=== PATIENT | female | born 1970 | race Hispanic/Latino ===

== ENCOUNTER 2017-10-25 13:03 | Emergency (ER) | payer SELFPAY ==
[2017-10-25 13:09] VITALS: BMI 35.6
[2017-10-25 13:13] VITALS: RESP 18; TEMP 98.2
[2017-10-25] MEDS ORDERED: Albuterol-Ipratrop 3 mg / 0.5 (3 ml) UD IH STA (13:25)
--- NOTE | 2017-10-25 13:27 | ED PDOC ---
Arrival/HPI - General Chief Complaint: Shortness Of Breath Time Seen by Provider: 10/25/17 13:08 Historian: Patient - History of Present Illness Narrative History of Present Illness (Text): 10/25/17 13:25 47 year old female, whose PMH includes COPD and peripheral edema, who presents to the emergency department complaining of shortness of breath associated with cough and sore throat that has gradually become worse. Patient denies other complaints. PMD: Dr. Steinberg Time/Duration: < week Symptom Course: Unchanged Context: Home Past Medical History - Provider Review Nursing Documentation Reviewed: Yes - Past History Past History: Non-Contributing (hypothyroidm, borderline dm, htn? (is on "water pill' for LE edema)) - Infectious Disease Hx of Infectious Diseases: None - Tetanus Immunization Tetanus Immunization: Unknown - Cardiac Hx Cardiac Disorders: No Hx Peripheral Edema: Yes (ble +1) - Pulmonary Hx Bronchitis: Yes Hx Chronic Obstructive Pulmonary Disease (COPD): Yes Hx Pneumonia: Yes - Neurological Hx Neurological Disorder: No - HEENT Hx HEENT Disorder: No - Renal Hx Renal Disorder: No - Endocrine/Metabolic Hx Hypothyroidism: Yes Other/Comment: hashimotos - Hematological/Oncological Hx Anemia: Yes - Integumentary Hx Dermatological Disorder: No - Musculoskeletal/Rheumatological Hx Falls: No - Genitourinary/Gynecological Hx Genitourinary Disorders: Yes (UTI) - Psychiatric Hx Substance Use: No - Past Surgical History Past Surgical History: No Previous - Anesthesia Hx Anesthesia: No - Suicidal Assessment Feels Threatened In Home Enviroment: No Family/Social History - Physician Review Nursing Documentation Reviewed: Yes Family/Social History: Unknown Family HX Smoking Status: Heavy Smoker > 10 Cigarettes Daily Hx Alcohol Use: No Hx Substance Use: No Hx Substance Use Treatment: No Allergies/Home Meds Allergies/Adverse Reactions: Allergies Penicillins Allergy (Verified 10/25/17 13:09) SHORTNESS OF BREATH Home Medications: Home Meds Medication Instructions Recorded Confirmed Levothyroxine [Synthroid] 0 mg PO DAILY 01/29/15 10/25/17 Furosemide [Lasix] 0 mg PO DAILY 10/25/17 10/25/17 Review of Systems - Physician Review All systems were reviewed & negative as marked: Yes - Review of Systems ENT: Sore Throat. absent: Sinus Congestion Respiratory: SOB, Cough Cardiovascular: absent: Chest Pain Gastrointestinal: absent: Abdominal Pain Physical Exam Vital Signs Reviewed: Yes Vital Signs Temp Pulse Resp BP Pulse Ox 10/25/17 15:03 75 18 116/58 L 98 10/25/17 13:24 18 10/25/17 13:12 98.2 F 78 18 114/47 L 97 Temperature: Afebrile Blood Pressure: Hypotensive Pulse: Regular Respiratory Rate: Normal Appearance: Positive for: Well-Appearing, Non-Toxic, Comfortable Pain Distress: None Mental Status: Positive for: Alert and Oriented X 3 - Systems Exam Head: Present: Atraumatic, Normocephalic Pupils: Present: PERRL Extroacular Muscles: Present: EOMI Conjunctiva: Present: Normal Mouth: Present: Moist Mucous Membranes Pharnyx: Present: Normal. No: ERYTHEMA, EXUDATE, TONSILS ENLARGED Respiratory/Chest: Present: Clear to Auscultation, Decreased Breath Sounds ( mildly diminished at the bases ). No: Good Air Exchange, Respiratory Distress, Accessory Muscle Use, Wheezes, Rales, Retracting, Rhonchi Cardiovascular: Present: Regular Rate and Rhythm, Normal S1, S2. No: Murmurs Abdomen: Present: Normal Bowel Sounds. No: Tenderness, Distention, Peritoneal Signs, Rebound, Guarding Neurological: Present: GCS=15, CN II-XII Intact, Speech Normal Skin: Present: Warm, Dry, Normal Color. No: Rashes Psychiatric: Present: Alert, Oriented x 3, Normal Insight, Normal Concentration Medical Decision Making ED Course and Treatment: 10/25/17 13:28 Impression: 47 year old female with diminished breath sounds at the bases complainig of shortness of breath. Plan: -- EKG -- Chest X-ray -- Labs -- Urinalysis -- Reassess and disposition Progress Notes: EKG: Ordered, reviewed, and independently interpreted the EKG. Rate : 68 BPM Rhythm : NSR Interpretation : No ST-segment elevations or depressions, no T-wave inversions, normal intervals. Comparison : No previous EKG for comparison. 10/25/17 14:10 Chest X-ray reviewed by radiologist, shows: LUNGS: No active pulmonary disease. No suspicious nodules masses or infiltrates PLEURA: No significant pleural effusion identified, no pneumothorax apparent. CARDIOVASCULAR: Cardiomegaly, pulmonary vascular congestion. OSSEOUS STRUCTURES: No significant abnormalities. VISUALIZED UPPER ABDOMEN: Normal. OTHER FINDINGS: None. IMPRESSION: Cardiomegaly/mild CHF. 10/28/17 09:[address] peralta with labs and imaging. agrees with outpt managment. 10/28/17 09:26 lungs clear on reassemsent speaking full sentences in nad. tamiflu given empiric - Lab Interpretations Lab Results: 10/25/17 13:30 10/25/17 13:30 Lab Results 10/25/17 13:30: Sodium 135, Potassium 3.6, Chloride 88 L, Carbon Dioxide 38 H, Anion Gap 13, BUN 9, Creatinine 0.8, Est GFR ( Amer) > 60, Est GFR (Non- Af Amer) > 60, Random Glucose 103, Calcium 9.1, Magnesium 2.0, Total Bilirubin 0.3, AST 38 H, ALT 37, Alkaline Phosphatase 102, Lactate Dehydrogenase 792 H, Total Creatine Kinase 377 H, CK-MB (CK-2) 4.1 H, CK-MB (CK-2) % Cancelled, Troponin I < 0.01, NT-Pro-B Natriuret Pep 21.0, Total Protein 7.6, Albumin 4.1, Globulin 3.5, Albumin/Globulin Ratio 1.2 10/25/17 13:30: PT 11.0, INR 0.96, APTT 36.6 H 10/25/17 13:30: WBC 11.4 H, RBC 5.20, Hgb 14.0, Hct 43.5, MCV 83.7, MCH 26.9, MCHC 32.2, RDW 17.9 H, Plt Count 323, MPV 9.8, Gran % 80.3 H, Lymph % (Auto) 8.9 L, [place] % (Auto) 4.1, Eos % (Auto) 6.0 H, Baso % (Auto) 0.7, Gran # 9.16 H, Lymph # (Auto) 1.0 L, [place] # (Auto) 0.5, Eos # (Auto) 0.7, Baso # (Auto) 0.08 I have reviewed the lab results: Yes - RAD Interpretation Radiology Orders: 10/25/17 13:24 CHEST PORTABLE [RAD] Stat Professional Athletes Coach: Radiologist - EKG Interpretation Interpreted by ED Physician: Yes Type: 12 lead EKG - Medication Orders Current Medication Orders: Discontinued Medications Albuterol/Ipratropium (Duoneb 3 Mg/0.5 Mg (3 Ml) Ud) 3 ml IH STAT STA Stop: 10/25/17 13:26 Last Admin: 10/25/17 13:48 Dose: 3 ml - Scribe Statement The provider has reviewed the documentation as recorded by the Donyaibe Charlene Mack Provider Scribe Attestation: All medical record entries made by the Scribe were at my direction and personally dictated by me. I have reviewed the chart and agree that the record accurately reflects my personal performance of the history, physical exam, medical decision making, and the department course for this patient. I have also personally directed, reviewed, and agree with the discharge instructions and disposition. Disposition/Present on Arrival - Present on Arrival Any Indicators Present on Arrival: No History of DVT/PE: No History of Uncontrolled Diabetes: No Urinary Catheter: No History of Decub. Ulcer: No History Surgical Site Infection Following: None - Disposition Have Diagnosis and Disposition been Completed?: Yes Diagnosis: Acute bronchitis Disposition: HOME/ ROUTINE Disposition Time: 03:00 Condition: STABLE Discharge Instructions (ExitCare): Acute Bronchitis Additional Instructions: please follow up with your doctor. return to er with worsening symptoms or concerns. your pmd is expecting to see you tomorrow Prescriptions: Albuterol 0.083% [Albuterol 0.083% Inhal Manjula (2.5 mg/3 ml) UD] 2.5 mg IH Q4 PRN #20 neb PRN Reason: Wheezing Oseltamivir Phosphate [Tamiflu] 75 mg PO BID #10 capsule Referrals: Reed Steinberg MD [Primary Care Provider] - Follow up with primary Forms: [employer] (Romanian)
[2017-10-25 13:53] LABS: BASO # 0.08 K/mm3 (0.0-2.0); BASO % 0.7 % (0.0-3.0); EOS # 0.7 (0.0-0.7); GRAN # 9.16 (1.4-6.5); GRAN % 80.3 % (50.0-68.0); LYMPH % 8.9 % (22.0-35.0); MEAN CELL VOLUME 83.7 fl (80.0-105.0); MEAN CORPUSCULAR HEMOGLOBIN 26.9 pg (25.0-35.0); MEAN CORPUSCULAR HGB CONC 32.2 g/dl (31.0-37.0); MEAN PLATELET VOLUME 9.8 fl (7.0-11.0); MONO # 0.5 (0.1-0.6); MONO % 4.1 % (1.0-6.0); RBC 5.2 10^6/uL (3.5-6.1); RED CELL DISTRIBUTION WIDTH 17.9 % (11.5-14.5); WHITE BLOOD COUNT 11.4 10^3/ul (4.5-11.0)
--- NOTE | 2017-10-25 14:00 | RAD ---
HISTORY: Shortness of breath. COMPARISON: 05/21/2016. FINDINGS: LUNGS: No active pulmonary disease. No suspicious nodules masses or infiltrates PLEURA: No significant pleural effusion identified, no pneumothorax apparent. CARDIOVASCULAR: Cardiomegaly, pulmonary vascular congestion. OSSEOUS STRUCTURES: No significant abnormalities. VISUALIZED UPPER ABDOMEN: Normal. OTHER FINDINGS: None. IMPRESSION: Cardiomegaly/mild CHF.
[2017-10-25 14:03] LABS: INR 0.96 (0.93-1.08); PARTIAL THROMBOPLASTIN TIME 36.6 Seconds (25.1-36.5)
[2017-10-25 14:20] LABS: TROPONIN I < 0.01 ng/mL
[2017-10-25 14:22] LABS: ALB/GLOB RATIO 1.2 (1.1-1.8); ALBUMIN 4.1 g/dL (3.0-4.8); ALT/SGPT 37 U/L (7-56); AST/SGOT 38 U/L (14-36); BLOOD UREA NITROGEN 9 mg/dL (7-21); CALCIUM 9.1 mg/dL (8.4-10.5); GFR AFRICAN-AMERICAN > 60; GFR NON-AFRICAN AMERICAN > 60
[2017-10-25 14:27] LABS: CK-MB 4.1 ng/mL (0.0-3.6)
[2017-10-25 15:03] VITALS: BP 116/58; PULSE 75; O2SAT 98
--- NOTE | 2017-10-26 09:32 | CARD ---
APPROVED REPORT EKG Measurement Heart [id number] <Conclusion> Normal sinus rhythm Low voltage QRS NSSTW changes T waves now upright V 2,3 and 6
== END 2017-10-25 15:16 | disposition home or self-care (01) ==
LOC: ED 13:03
DX: J20.9 Acute bronchitis, unspecified (principal); F17.210 Nicotine dependence, cigarettes, uncomplicated

== ENCOUNTER 2017-10-29 08:55 | Emergency (ER) | payer BC ==
[2017-10-29 08:56] VITALS: BMI 35.6
[2017-10-29 10:00] LABS: BASO # 0.07 K/mm3 (0.0-2.0); BASO % 0.7 % (0.0-3.0); EOS # 0.7 (0.0-0.7); GRAN # 7.88 (1.4-6.5); GRAN % 76.8 % (50.0-68.0); HEMOGLOBIN 14.4 g/dL (12.0-16.0); LYMPH # 1.2 (1.2-3.4); LYMPH % 11.4 % (22.0-35.0); MEAN CELL VOLUME 84.8 fl (80.0-105.0); MEAN CORPUSCULAR HEMOGLOBIN 27.3 pg (25.0-35.0); MEAN CORPUSCULAR HGB CONC 32.2 g/dl (31.0-37.0); MEAN PLATELET VOLUME 9.9 fl (7.0-11.0); MONO # 0.4 (0.1-0.6); MONO % 4.1 % (1.0-6.0); RBC 5.27 10^6/uL (3.5-6.1); RED CELL DISTRIBUTION WIDTH 18.4 % (11.5-14.5); WHITE BLOOD COUNT 10.3 10^3/ul (4.5-11.0)
--- NOTE | 2017-10-29 10:03 | ED PDOC ---
Arrival/HPI - General Chief Complaint: Psychiatric Evaluation Time Seen by Provider: 10/29/17 09:24 Historian: Patient EM Caveat: Altered Mental Status - History of Present Illness Narrative History of Present Illness (Text): 10/29/17 09:51 Pt is a 47 yr old morbidly obese female w PMH of Hypertension, COPD, Sleep apnea and more recently, scabies, presents to the emergency department for altered mental status since Saturday. Reports that she has had dream-like states after watching certain engaging television shows before sleeping, says she awakes and begins to hear and see characters from the show and accuses her spouse and family of doing things such as selling marijuana, that she saw on TV. Reports this has continued over the weekend and Saturday with the finally bringing her to the ED after she was talking gibberish today. Also complaining of neck pain primarily on neck extension. Pt reports a healing rash from scabies which is now improving. Says she is supposed to use a C-PAP unit at night but feels panicked using it; also smokes more than one pack/day. Denies suicidal or homicidal ideation, chest pain shortness of breath abdominal pain, REDDY, fever, LOC, trauma, previous psychiatric dx, new medications, or any other complaints. PMD is Dr. Steinberg. 10/29/17 10:06 Time/Duration: 4-6 hours Symptom Onset: Gradual Symptom Course: Intermittent Quality: Unable to Describe Severity Level: 3 Activities at Onset: Rest, Sleeping Context: Home Past Medical History - Provider Review Nursing Documentation Reviewed: Yes - Travel History Have you recently traveled outside [place] w/in the past 3 mons?: No - Past History Past History: Non-Contributing (hypothyroidm, borderline dm, htn? (is on "water pill' for LE edema)) - Infectious Disease Hx of Infectious Diseases: None - Tetanus Immunization Tetanus Immunization: Unknown - Cardiac Hx Cardiac Disorders: Yes Hx Peripheral Edema: Yes (ble +1) - Pulmonary Hx Bronchitis: Yes Hx Chronic Obstructive Pulmonary Disease (COPD): Yes Hx Pneumonia: Yes - Neurological Hx Neurological Disorder: No - HEENT Hx HEENT Disorder: No - Renal Hx Renal Disorder: No - Endocrine/Metabolic Hx Endocrine Disorders: Yes Hx Hypothyroidism: Yes Other/Comment: hashimotos, goiter - Hematological/Oncological Hx Anemia: Yes - Integumentary Hx Dermatological Disorder: Yes Other/Comment: treated for scabies 10/07/17 - Musculoskeletal/Rheumatological Hx Musculoskeletal Disorders: Yes Hx Falls: No Other/Comment: "pinched nerve" - Genitourinary/Gynecological Hx Genitourinary Disorders: Yes (UTI) - Psychiatric Hx Substance Use: No - Past Surgical History Past Surgical History: No Previous - Anesthesia Hx Anesthesia: No - Suicidal Assessment Feels Threatened In Home Enviroment: No Family/Social History - Physician Review Nursing Documentation Reviewed: Yes Family/Social History: Unknown Family HX Smoking Status: Heavy Smoker > 10 Cigarettes Daily Hx Alcohol Use: No Hx Substance Use: No Hx Substance Use Treatment: No Allergies/Home Meds Allergies/Adverse Reactions: Allergies Penicillins Allergy (Verified 10/29/17 09:14) SHORTNESS OF BREATH Home Medications: Home Meds Medication Instructions Recorded Confirmed Levothyroxine [Synthroid] 25 mcg PO DAILY 01/29/15 10/29/17 Furosemide [Lasix] 20 mg PO DAILY 10/25/17 10/29/17 Levofloxacin [Levaquin] 500 mg PO DAILY 10/29/17 10/29/17 Prednisone 50 mg PO DAILY 10/29/17 10/29/17 Review of Systems - Review of Systems Systems not reviewed;Unavailable: Altered Mental Status Constitutional: Normal Eyes: Normal ENT: Normal Respiratory: Normal Cardiovascular: Normal Gastrointestinal: Normal Genitourinary Female: Normal Musculoskeletal: Back Pain, Neck Pain Skin: Rash Neurological: Normal Endocrine: Normal Hemo/Lymphatic: Normal Psychiatric: Anxiety, Other (hallucinations). absent: Depression, Suicidal Ideation Physical Exam Vital Signs Reviewed: Yes Vital Signs Temp Pulse Resp BP Pulse Ox 10/29/17 13:00 98.2 F 80 20 136/75 96 10/29/17 09:44 98.1 F 77 18 123/84 98 Temperature: Afebrile Blood Pressure: Normal Pulse: Regular Respiratory Rate: Normal Appearance: Positive for: Well-Appearing, Non-Toxic, Comfortable Pain Distress: Mild Mental Status: Positive for: Alert and Oriented X 3 - Systems Exam Head: Present: Atraumatic, Normocephalic Pupils: Present: PERRL Extroacular Muscles: Present: EOMI Conjunctiva: Present: Normal Mouth: Present: Moist Mucous Membranes Neck: Present: Normal Range of Motion Respiratory/Chest: Present: Clear to Auscultation, Good Air Exchange. No: Respiratory Distress, Accessory Muscle Use Cardiovascular: Present: Regular Rate and Rhythm, Normal S1, S2. No: Murmurs Abdomen: No: Tenderness, Distention, Peritoneal Signs Back: Present: Normal Inspection, Midline Tenderness, Paraspinal Tenderness ( nape of neck, C-T-LS, SI jt bilateral) Upper Extremity: Present: Normal Inspection, Normal ROM, NORMAL PULSES, Tenderness (nape of neck, C-T-LS, SI jt bilateral). No: Cyanosis, Edema Lower Extremity: Present: Normal Inspection, NORMAL PULSES, Normal ROM. No: Edema, CALF TENDERNESS, Tenderness, Swelling, Erythema Neurological: Present: GCS=15, CN II-XII Intact, Speech Normal, Motor Func Grossly Intact, Normal Sensory Function Skin: Present: Warm, Dry, Rashes (healing scabies lesions covering entire body; excoriations), Normal Color Lymphatic: No: Cervical Adenopathy, Axillary Adenopathy, Inguinal Adenopathy, Other Psychiatric: Present: Alert, Oriented x 3, Normal Insight, Normal Concentration , Normal Affect, Normal Mood, Anxious, Agitated. No: Suicidal Ideation, Homicidal Ideation, Delusional, Hallucinations Medical Decision Making ED Course and Treatment: 10/29/17 10:06 Pt is a 47 yr old morbidly obese female w PMH of Hypertension, COPD, Sleep apnea and more recently, scabies, presents to the emergency department for altered mental status since Saturday. Reports that she has had dream-like states after watching certain engaging television shows before sleeping, says she awakes and begins to hear and see characters from the show and accuses her spouse and family of doing things such as selling marijuana, that she saw on TV. Reports this has continued over the weekend and Saturday with the finally bringing her to the ER after she was talking gibberish today. Pt not using C-PAP, smokes 1 pk/day or more, recent scabies infection, complaining of neck pain Working Dx: Psychotic episode, UTI, meningitis Brudzinski and Kernig sign negative, SLR neg, CVA tenderness neg,mild wheezing on expiration but has good air exchange Plan Labs, Urinalysis CT w/and w/o IV contrast assess and dispo 10/29/17 10:24 Progress Note On Chest X-Ray, left lower lobe possible atelectasis/effusion; DW Dr. Baudilio Steinberg who advised MedrolDose Dion and continue with Levaquin; patient was seen in his office Saturday and put on Levaquin Pt received DuoNeb Tx x2 Stable and ventilating well with only mild wheezing and crackles Advised to follow up with Dr Steinberg in office tomorrow morning Discusses home care with both patient and her spouse VSS on DC - Lab Interpretations Lab Results: 10/29/17 09:17 10/29/17 09:17 Lab Results 10/29/17 10:25: Urine Color Yellow, Urine Appearance Clear, Urine pH 6.0, Ur Specific [employer] 1.025, Urine Protein 30 H, Urine Glucose (UA) Negative, Urine Ketones Negative, Urine Blood Negative, Urine Nitrate Negative, Urine Bilirubin Negative, Urine Urobilinogen 2.0 H, Ur Leukocyte Esterase Trace H, Urine RBC 1 - 3, Urine WBC 2 - 5, Ur Epithelial Cells 6 - 8, Amorphous Sediment Few, Urine Bacteria Many, Urine Other Uyeast, Urine HCG, Qual Negative 10/29/17 10:25: Urine Opiates Screen Negative, Urine Methadone Screen Negative, Ur Barbiturates Screen Negative, Ur Phencyclidine Scrn Negative, Ur Amphetamines Screen Negative, U Benzodiazepines Scrn Negative, U Oth Cocaine Metabols Negative, U Cannabinoids Screen Negative 10/29/17 09:17: Alcohol, Quantitative < 10 10/29/17 09:17: Salicylates 2, Acetaminophen < 10.0 L 10/29/17 09:17: Sodium 138, Potassium 3.8, Chloride 91 L, Carbon Dioxide 41 H, Anion Gap 10, BUN 8, Creatinine 1.0, Est GFR ( Amer) > 60, Est GFR (Non- Af Amer) 60, Random Glucose 132 H, Calcium 9.0, Total Bilirubin 0.2, AST 41 H, ALT 40, Alkaline Phosphatase 102, Lactate Dehydrogenase 793 H, Total Creatine Kinase 534 H, CK-MB (CK-2) 4.9 H, CK-MB (CK-2) % Cancelled, Troponin I < 0.01, Total Protein 7.6, Albumin 4.1, Globulin 3.5, Albumin/Globulin Ratio 1.2 10/29/17 09:17: WBC 10.3, RBC 5.27, Hgb 14.4, Hct 44.7, MCV 84.8, MCH 27.3, MCHC 32.2, RDW 18.4 H, Plt Count 334, MPV 9.9, Gran % 76.8 H, Lymph % (Auto) 11.4 L, [place] % (Auto) 4.1, Eos % (Auto) 7.0 H, Baso % (Auto) 0.7, Gran # 7.88 H , Lymph # (Auto) 1.2, [place] # (Auto) 0.4, Eos # (Auto) 0.7, Baso # (Auto) 0.07 Interpretation: No sign. chg./baseline - RAD Interpretation Narrative RAD Interpretations (Text): 10/29/17 12:06 LUNGS: The right lung is clear. There is question of an opacity in the left lower lobe. PLEURA: No pneumothorax or right pleural fluid seen. There is blunting of the left costophrenic angle. CARDIOVASCULAR: Normal. OSSEOUS STRUCTURES: No significant abnormalities. VISUALIZED UPPER ABDOMEN: Normal. OTHER FINDINGS: None. IMPRESSION: Question of left lower lobe atelectasis/pleural effusion. Follow-up is advised. Radiology Orders: 10/29/17 09:47 CHEST ONE VIEW [RAD] Stat 10/29/17 09:50 HEAD W/WO CONTRAST [CT] Stat - EKG Interpretation Interpreted by ED Physician: Yes (Sinus Venkat: Rate of 59) - Medication Orders Current Medication Orders: Discontinued Medications Albuterol/Ipratropium (Duoneb 3 Mg/0.5 Mg (3 Ml) Ud) 3 ml IH STAT STA Stop: 10/29/17 12:29 Last Admin: 10/29/17 12:45 Dose: 3 ml Albuterol/Ipratropium (Duoneb 3 Mg/0.5 Mg (3 Ml) Ud) 3 ml IH Q15M [facility] Last Admin: 10/29/17 13:20 Dose: 3 ml Levofloxacin (Levaquin) 750 mg PO STAT STA PRN Reason: Protocol Stop: 10/29/17 13:11 Last Admin: 10/29/17 13:26 Dose: 750 mg Disposition/Present on Arrival - Present on Arrival Any Indicators Present on Arrival: Yes History of DVT/PE: No History of Uncontrolled Diabetes: No Urinary Catheter: No History of Decub. Ulcer: No History Surgical Site Infection Following: None - Disposition Have Diagnosis and Disposition been Completed?: Yes Diagnosis: PNA (pneumonia) Disposition: HOME/ ROUTINE Disposition Time: 13:17 Patient Plan: Discharge Condition: STABLE Discharge Instructions (ExitCare): Community-Acquired Pneumonia, Adult (DC) Additional Instructions: Dharmesh, thank you for letting us take care of you today. Your provider was PRASANTH Hdez. You were treated for pneumonia. The emergency medical care you received today was directed at your acute symptoms. If you were prescribed any medication , please fill it and take as directed. It may take several days for your symptoms to resolve. Return to the Emergency Department if your symptoms worsen , do not improve, or if you have any other problems. Please contact your doctor or call one of the physicians/clinics you have been referred to that are listed on the Patient Visit Information form that is included in your discharge packet. Bring any paperwork you were given at discharge with you along with any medications you are taking to your follow up visit. Our treatment cannot replace ongoing medical care by a primary care provider (PCP) outside of the emergency department. Thank you for allowing the [facility] team to be part of your care today. If you had an X-Ray or CT scan: A Radiologist will review the ED reading if any change in treatment is needed we will contact you. If you had a blood, urine, or wound culture: It will take several days for the results, if any change in treatment is needed we will contact you. Prescriptions: Methylprednisolone [Medrol Dose Pack (21 tabs)] 4 mg PO Q6 6 Days #21 mg Referrals: Idris WYATT,Baudilio Donahue MD [Primary Care Provider] - Follow up with primary Forms: [employer] ([place]ese)
[2017-10-29 10:12] LABS: ACETAMINOPHEN < 10.0 ug/ml (10.0-20.0); SALICYLATE 2 mg/dL (2.0-20.0)
[2017-10-29 10:18] LABS: ALB/GLOB RATIO 1.2 (1.1-1.8); ALBUMIN 4.1 g/dL (3.0-4.8); ALT/SGPT 40 U/L (7-56); AST/SGOT 41 U/L (14-36); BLOOD UREA NITROGEN 8 mg/dL (7-21); GFR AFRICAN-AMERICAN > 60; GFR NON-AFRICAN AMERICAN 60
[2017-10-29 10:24] LABS: TROPONIN I < 0.01 ng/mL
[2017-10-29 10:27] LABS: CK-MB 4.9 ng/mL (0.0-3.6)
[2017-10-29] MEDS ORDERED: Iohexol 350 MG/100 ML VIAL ONE (10:27)
[2017-10-29 10:43] LABS: URINE BILIRUBIN NEGATIVE (NEGATIVE); URINE BLOOD NEGATIVE (NEGATIVE); URINE GLUCOSE (UA) NEGATIVE (NEGATIVE); URINE LEUKOCYTE ESTERASE TRACE Leu/uL (NEGATIVE); URINE PROTEIN 30 mg/dL (<30 mg/dL)
[2017-10-29 10:47] LABS: OPIATES, UR NEGATIVE (NEGATIVE)
[2017-10-29 10:53] LABS: BARBITURATES, UR NEGATIVE (NEGATIVE); BENZODIAZEPINES, UR NEGATIVE (NEGATIVE); PHENCYCLIDINE, UR NEGATIVE (NEGATIVE)
[2017-10-29 10:56] LABS: HCG,QUALITATIVE URINE NEGATIVE (NEGATIVE)
[2017-10-29 10:57] LABS: URINE APPEARANCE CLEAR (CLEAR); URINE COLOR YELLOW (YELLOW)
[2017-10-29 11:01] LABS: URINE AMORPHOUS SEDIMENT FEW; URINE BACTERIA MANY (NEG)
--- NOTE | 2017-10-29 11:29 | CT ---
PROCEDURE: CT HEAD WITH AND WITHOUT CONTRAST HISTORY: Altered mental status COMPARISON: None available. TECHNIQUE: Axial computed tomography images were obtained through the head/brain with and without intravenous contrast enhancement. 100 cc Omnipaque 350 was injected intravenously. Radiation dose: Total exam DLP = 1561.23 mGy-cm. This CT exam was performed using one or more of the following dose reduction techniques: Automated exposure control, adjustment of the mA and/or kV according to patient size, and/or use of iterative reconstruction technique. FINDINGS: HEMORRHAGE: No intracranial hemorrhage. BRAIN: Peoples-white matter differentiation is preserved. There is no mass, mass effect or abnormal extra-axial fluid collection. There is no territorial infarction. There is normal intravascular enhancement. There is no abnormal leptomeningeal or parenchymal enhancement. VENTRICLES: The ventricles are normal in size, shape and configuration. CALVARIUM: The skull base and calvarium are normal. SINUSES: Predominantly clear. MASTOID AIR CELLS: Predominantly clear. OTHER FINDINGS: None. IMPRESSION: No acute intracranial abnormality. Essentially normal noncontrast and contrast-enhanced CT scan of the brain.
--- NOTE | 2017-10-29 11:43 | RAD ---
PROCEDURE: CHEST RADIOGRAPH, 1 VIEW HISTORY: AMS COMPARISON: 10/25/2017. FINDINGS: LUNGS: The right lung is clear. There is question of an opacity in the left lower lobe. PLEURA: No pneumothorax or right pleural fluid seen. There is blunting of the left costophrenic angle. CARDIOVASCULAR: Normal. OSSEOUS STRUCTURES: No significant abnormalities. VISUALIZED UPPER ABDOMEN: Normal. OTHER FINDINGS: None. IMPRESSION: Question of left lower lobe atelectasis/pleural effusion. Follow-up is advised.
[2017-10-29] MEDS ORDERED: Albuterol-Ipratrop 3 mg / 0.5 (3 ml) UD IH STA (12:28)
[2017-10-29] MEDS ORDERED: levoFLOXacin 750 MG TAB PO STA (13:10)
[2017-10-29] MEDS ORDERED: Albuterol-Ipratrop 3 mg / 0.5 (3 ml) UD IH SCH (13:15)
[2017-10-29 13:33] VITALS: BP 136/75; PULSE 80; RESP 20; TEMP 98.2; O2SAT 96
--- NOTE | 2017-10-29 21:31 | CARD ---
APPROVED REPORT EKG Measurement Heart [id number] <Conclusion> Sinus bradycardia Low voltage QRS Cannot rule out Anterior infarct, age undetermined Abnormal ECG
== END 2017-10-29 13:34 | disposition home or self-care (01) ==
LOC: ED 08:55
DX: J18.9 Pneumonia, unspecified organism (principal); I10 Essential (primary) hypertension; G47.30 Sleep apnea, unspecified; J44.9 Chronic obstructive pulmonary disease, unspecified; F17.210 Nicotine dependence, cigarettes, uncomplicated
CPT/HCPCS: 70470; 71045; 80053; 81001; 82550; 82553; 83615; 84484; 84703; 85025; 87086; 93005; 99284; G0480; Q9967

== ENCOUNTER 2017-11-01 07:36 | Inpatient (IN) | payer BC ==
[2017-11-01 08:03] VITALS: BMI 34.9
[2017-11-01] MEDS ORDERED: Sodium Chloride 0.9% 1,000 ML IV SCH (08:15)
--- NOTE | 2017-11-01 08:32 | ED PDOC ---
Arrival/HPI - General Chief Complaint: Psychiatric Evaluation Time Seen by Provider: 11/01/17 08:11 Historian: Patient - History of Present Illness Narrative History of Present Illness (Text): 11/01/17 08:20 47 year old female, whose PMH includes chronic lower back pain, who presents to the emergency department and states having AMS since 4 days ago associated with visual hallucination. Patient reports she thought she left her house to go to an appointment but never left the house. She also states seeing people that are not there and has conversations with them, as witnessed by her . Patient notes one week ago seeing her PMD Dr. Steinberg and being diagnosed with reactive airway disorder/bronchitis, and was prescribed a nebulizer machines, which she uses daily. She states when seeing her PMD she had shortness of breath and dry cough, which has turned into a productive yellow non-bloody sputum. She was seen in the emergency department 2 days ago for the same complaints and started a course of steroids/abx. pt arrived to ED today complaining of persistent sob, coughing now with yellow sputumn, persistent back pain, feeling weak/malaise, easily fatigued; Patient denies fever, chills, palpitations, chest pain, abdominal pain, urinary discomfort or change. Additionally, she rates her chronic low back pain a 6 out of 10. pt is here for further eval pt's without other complaints. PMD: Dr. Steinberg pt lives with spouse at home pt + smoker pt dx with large goiter Time/Duration: < week Symptom Onset: Gradual Symptom Course: Unchanged Severity Level: Severe Activities at Onset: Rest Context: Home Past Medical History - Provider Review Nursing Documentation Reviewed: Yes - Travel History Have you recently traveled outside [place] w/in the past 3 mons?: No - Past History Past History: Non-Contributing (hypothyroidm, borderline dm, htn? (is on "water pill' for LE edema)) - Infectious Disease Hx of Infectious Diseases: None - Tetanus Immunization Tetanus Immunization: Unknown - Reproductive Menopause: No Currently : Unknown - Cardiac Hx Cardiac Disorders: Yes Hx Peripheral Edema: Yes (ble +1) - Pulmonary Hx Bronchitis: Yes Hx Chronic Obstructive Pulmonary Disease (COPD): Yes Hx Pneumonia: Yes - Neurological Hx Neurological Disorder: No - HEENT Hx HEENT Disorder: No - Renal Hx Renal Disorder: No - Endocrine/Metabolic Hx Endocrine Disorders: Yes Hx Hypothyroidism: Yes Other/Comment: hashimotos, goiter - Hematological/Oncological Hx Anemia: Yes - Integumentary Hx Dermatological Disorder: Yes Other/Comment: treated for scabies 10/07/17 - Musculoskeletal/Rheumatological Hx Musculoskeletal Disorders: Yes Hx Falls: No Other/Comment: "pinched nerve" - Genitourinary/Gynecological Hx Genitourinary Disorders: Yes (UTI) - Psychiatric Hx Substance Use: No - Past Surgical History Past Surgical History: No Previous - Anesthesia Hx Anesthesia: No - Suicidal Assessment Feels Threatened In Home Enviroment: No Family/Social History - Physician Review Nursing Documentation Reviewed: Yes Family/Social History: Unknown Family HX Smoking Status: Heavy Smoker > 10 Cigarettes Daily Hx Alcohol Use: No Hx Substance Use: No Hx Substance Use Treatment: No Allergies/Home Meds Allergies/Adverse Reactions: Allergies Penicillins Allergy (Verified 11/01/17 08:00) SHORTNESS OF BREATH Home Medications: Home Meds Medication Instructions Recorded Confirmed Levothyroxine [Synthroid] 25 mcg PO DAILY 01/29/15 11/01/17 Furosemide [Lasix] 20 mg PO DAILY 10/25/17 11/01/17 Levofloxacin [Levaquin] 500 mg PO DAILY 10/29/17 11/01/17 Prednisone 50 mg PO DAILY 10/29/17 11/01/17 Review of Systems - Review of Systems Constitutional: absent: Fevers Eyes: absent: Vision Changes ENT: absent: Sore Throat Respiratory: SOB, Cough, Sputum (yellow) Cardiovascular: absent: Chest Pain, Palpitations Gastrointestinal: absent: Abdominal Pain, Vomiting Genitourinary Female: absent: Dysuria, Frequency Musculoskeletal: absent: Back Pain Skin: absent: Rash Neurological: absent: Headache Endocrine: absent: Diaphoresis Hemo/Lymphatic: Normal Psychiatric: Other (visual hallucinations ). absent: Anxiety, Suicidal Ideation Physical Exam Vital Signs Reviewed: Yes (hypoxia) Vital Signs Temp Pulse Resp BP Pulse Ox 11/01/17 13:08 18 99 11/01/17 12:22 98.9 F 89 20 100/76 95 11/01/17 11:53 87 18 95 11/01/17 08:04 98.6 F 80 21 141/78 89 L 11/01/17 08:02 98.6 F 80 21 141/78 89 L Temperature: Afebrile Blood Pressure: Normal Pulse: Regular Respiratory Rate: Tachypneic Appearance: Positive for: Well-Appearing, Non-Toxic, Uncomfortable, Other ( resting in her exam bed, head hunched forward, uncomfortable, slight mild distress due to sob, cooperative; follows command with ease) Pain Distress: Mild Mental Status: Positive for: other (alert/awake, oriented x 2 (not to date/time) ). No: Confused, Agitated, Lethargic - Systems Exam Head: Present: Atraumatic, Normocephalic Pupils: Present: PERRL, Other (no nystagmus, no photophobia, sclera anicteric) Extroacular Muscles: Present: EOMI Conjunctiva: Present: Normal Mouth: Present: Dry, Other (fair dentitions, dry oral mucosa, hoarse voice is noted, no drooling/stridor; pt is sitting with her neck in flexion position) Pharnyx: Present: Other (uvula/tongue are midline) Nose (External): Present: Atraumatic Nose (Internal): Present: Normal Inspection Neck: Present: Trachea Midline, Other (pt is sitting with her neck in flexion, intact ROM however; no nuchal rigidity). No: Meningeal Signs, MIDLINE TENDERNESS Respiratory/Chest: Present: Respiratory Distress (mild), Other (diffuse wheezing b/l, + faint rales noted). No: Accessory Muscle Use Cardiovascular: Present: Regular Rate and Rhythm, Normal S1, S2. No: Murmurs Abdomen: Present: Normal Bowel Sounds, Other (obese female, no focal tenderness , no masses/rebound/guarding/rigidity). No: Tenderness, Distention, Peritoneal Signs Back: Present: Normal Inspection, Other (+ mid/lower back tenderness/para- thoracic/lumbar tenderness, no step off, no gross deformities noted) Upper Extremity: Present: Normal Inspection, NORMAL PULSES, Neurovascularly Intact. No: Cyanosis, Edema Lower Extremity: Present: Neurovascularly Intact, Other (intact ROM, strength 5- /5 grossly intact b/l, neurovasc intact b/l, slight +1/5 pitting edema noted b/ l lower leg, no alyse's sign). No: Edema, Alyse's Sign Neurological: Present: GCS=15, CN II-XII Intact, Speech Normal Skin: Present: Warm, Dry, Other (cap refill ~ 1sec, no ulcerations, no petechiae ). No: Rashes Psychiatric: Present: Alert, Oriented x 3 Medical Decision Making ED Course and Treatment: 11/01/17 Impression: 47 year old female with AMS complaining of visual hallucinations and productive yellow sputum cough. I have considered all Differential Diagnosis regarding pt's chief medical complaints/clinical findings included but are not limited to: Plan: -- EKG -- Chest X-ray -- Labs -- Duoneb and Solumedrol -- Urinalysis -- Reassess and disposition Progress Notes: pt is doing well currently pt is comfortable, with occasional sob/coughing ordered BiPAP for patient as pt's CO2 is elevated 11/01/17 10:[address] Steel, Access Service Representative ship yard electrical person, made aware of pt's medical presentation, will see patient at bedside. 11/01/17 11:[address] Steinberg, who is made aware of pt's medical complaints/ ED dx findings; agrees with admission; would like to consult Pulm Dr Burks. 11/01/17 13:21 pt evaluated by intensivists, who suggests given pt's well oriented and saturation is > 90% on oxygen support, does not recommend BiPAP and pt can be downgraded to telemetry Dr Steinberg is made aware pt remained at mental status baseline oriented x 3 pt is not in distress currently family/patient are made aware of her medical results agrees with admission Re-evaluation Time: 13:40 Reassessment Condition: Improving,but remains with symptoms - Critical Care Critical Care Minutes: 45 minutes Critical Care Time: Excluding Proc Time Narrative Critical Care (Text): 11/02/17 19:33 critical care time: 45min, excluding procedure time, excluding time teaching residents/students/mid-level providers; including initial eval/diagnosis, diagnostic interpretation, re-eval, consultations, final disposition - Lab Interpretations Narrative Lab Interpretation (Text): 11/01/17 11:00 Chest X-ray: Creator : Vane Green MD COMPARISON: 10/29/2017. FINDINGS: LINES AND TUBES: None. LUNG AND PLEURA: The lungs are well inflated without focal consolidation. There is moderate pulmonary venous congestion. HEART AND MEDIASTINUM: The heart is not enlarged. The hilar and mediastinal contours are within normal limits. SKELETAL STRUCTURES: The bony structures are within normal limits for the patient's age. VISUALIZED UPPER ABDOMEN: Normal. OTHER FINDINGS: None. IMPRESSION: Moderate pulmonary venous congestion. No active pulmonary disease. Microbiology Results: Microbiology Results 11/01/17 11:04 Urine,Clean Catch Urine Culture - Final No Growth (<1,000 CFU/ML) Lab Results: 11/01/17 08:54 11/01/17 08:54 Lab Results 11/01/17 10:15: pCO2 78 H*, pO2 40.0 L*, HCO3 43.1 H*, ABG pH 7.35, ABG Total CO2 45.5 H, ABG O2 Saturation 84.4 L, ABG O2 Content 14.3 L, ABG Base Excess 13.7 H, ABG Hemoglobin 13.5, ABG Carboxyhemoglobin 10.0 H, POC ABG HHb (Measured ) 14.0 H, ABG Methemoglobin 0.5, ABG O2 Capacity 16.9, Hgb O2 Saturation 75.5 L , FiO2 21.0 11/01/17 08:54: Urine Color Yellow, Urine Appearance Clear, Urine pH 7.0, Ur Specific Platinum 1.015, Urine Protein Negative, Urine Glucose (UA) Negative, Urine Ketones Negative, Urine Blood Trace-intact H, Urine Nitrate Negative, Urine Bilirubin Negative, Urine Urobilinogen 0.2, Ur Leukocyte Esterase Moderate H, Urine RBC 2 - 5, Urine WBC 20 - 25, Ur Epithelial Cells 4 - 5, Amorphous Sediment Few, Urine Bacteria Many 11/01/17 08:54: pO2 40, VBG pH 7.31 L, VBG pCO2 96.0 H*, VBG HCO3 48.3 H, VBG Total CO2 51.2 H, VBG O2 Sat (Calc) 81.3 H, VBG Base Excess 17.0 H, VBG Potassium 4.3, Sodium 140.0, Chloride 96.0 L, Glucose 143 H, Lactate 1.1, FiO2 21.0, Venous Blood Potassium 4.3 11/01/17 08:54: PT 12.3, INR 1.07, APTT 35.8 11/01/17 08:54: Sodium 143, Chloride 92 L, Potassium 4.2, Carbon Dioxide 42 H, Anion Gap 13, BUN 12, Creatinine 1.0, Est GFR ( Amer) > 60, Est GFR (Non- Af Amer) 60, Random Glucose 142 H, Calcium 9.0, Total Bilirubin 0.4, AST 66 H D , ALT 45, Alkaline Phosphatase 98, Troponin I < 0.01, NT-Pro-B Natriuret Pep 147 , Total Protein 8.3, Albumin 4.4, Globulin 3.9, Albumin/Globulin Ratio 1.1, Lipase 19 L 11/01/17 08:54: WBC 11.3 H, RBC 5.22, Hgb 14.3, Hct 44.6, MCV 85.4, MCH 27.4, MCHC 32.1, RDW 18.3 H, Plt Count 350, MPV 9.9, Gran % 89.1 H, Lymph % (Auto) 5.1 L, [place] % (Auto) 4.5, Eos % (Auto) 0.8 L, Baso % (Auto) 0.5, Gran # 10.03 H , Lymph # (Auto) 0.6 L, [place] # (Auto) 0.5, Eos # (Auto) 0.1, Baso # (Auto) 0.06 I have reviewed the lab results: Yes Interpretation: Abnormal lab values (elevated CO2; + UTI; abnl ABG) - RAD Interpretation Narrative RAD Interpretations (Text): 11/01/17 1400 Chest X-ray: Creator : Vane Green MD COMPARISON: 10/29/2017. FINDINGS: LINES AND TUBES: None. LUNG AND PLEURA: The lungs are well inflated without focal consolidation. There is moderate pulmonary venous congestion. HEART AND MEDIASTINUM: The heart is not enlarged. The hilar and mediastinal contours are within normal limits. SKELETAL STRUCTURES: The bony structures are within normal limits for the patient's age. VISUALIZED UPPER ABDOMEN: Normal. OTHER FINDINGS: None. IMPRESSION: Moderate pulmonary venous congestion. No active pulmonary disease. 11/01/[address] head 10/29 - WNL, no bleed Radiology Orders: 11/01/17 08:16 CHEST TWO VIEWS (PA/LAT) [RAD] Stat Smt Technician: Radiologist - EKG Interpretation EKG Interpretation (Text): 11/01/17 1800 NSR at 80 bpm, normal axis, no ectopy, diffuse low voltage, non-specific st-t changes, ABNL EKG; unchanged compare with old ekg 10/2017 Interpreted by ED Physician: Yes Type: 12 lead EKG Comparison: Similar to previous EKG - Medication Orders Current Medication Orders: Discontinued Medications Albuterol/Ipratropium (Duoneb 3 Mg/0.5 Mg (3 Ml) Ud) 3 ml IH Q15M HI Stop: 11/01/17 08:46 Last Admin: 11/01/17 09:00 Dose: 3 ml Albuterol/Ipratropium (Duoneb 3 Mg/0.5 Mg (3 Ml) Ud) 3 ml IH Q2H PRN PRN Reason: Shortness of Breath Last Admin: 11/01/17 16:51 Dose: 3 ml Albuterol/Ipratropium (Duoneb 3 Mg/0.5 Mg (3 Ml) Ud) 3 ml IH [id number] HI Last Admin: 11/01/17 15:11 Dose: 3 ml Home Med (Home Med) 1 unit IH DAILY HI Sodium Chloride (Sodium Chloride 0.9%) 1,000 mls @ 100 mls/hr IV .Q10H HI Last Admin: 11/01/17 08:58 Dose: 100 mls/hr eMAR Start Stop Document 11/01/17 08:58 [email or web address] (Rec: 11/01/17 08:58 [email or web address] [id number]) Intravenous Solution Start Date 11/01/17 Start Time 08:58 End Date 11/01/17 Levofloxacin/Dextrose (Levaquin 750mg) 750 mg IVPB ONCE ONE PRN Reason: Protocol Stop: 11/01/17 11:17 Last Admin: 11/01/17 12:18 Dose: 750 mg eMAR Start Stop Document 11/01/17 12:18 [email or web address] (Rec: 11/01/17 12:18 [email or web address] [id number]) Intravenous Solution Start Date 11/01/17 Start Time 12:18 End Date 11/01/17 Methylprednisolone (Solu-Medrol) 125 mg IVP STAT STA Stop: 11/01/17 08:16 Last Admin: 11/01/17 08:59 Dose: 125 mg IVP Administration Document 11/01/17 08:59 [email or web address] (Rec: 11/01/17 08:59 [email or web address] [id number]) Charges for Administration # of IVP Administrations 1 Methylprednisolone (Solu-Medrol) 40 mg IVP Q8 HI Last Admin: 11/01/17 15:45 Dose: 40 mg IVP Administration Document 11/01/17 15:45 (Rec: 11/01/17 16:33 [id number]) Charges for Administration # of IVP Administrations 1 Permethrin (Permethrin 5% Cream) 0 gm TOP ONCE ONE Stop: 11/01/17 14:35 - Scribe Statement The provider has reviewed the documentation as recorded by the Donyaibe Charlene Mack Provider Scribe Attestation: All medical record entries made by the Scribe were at my direction and personally dictated by me. I have reviewed the chart and agree that the record accurately reflects my personal performance of the history, physical exam, medical decision making, and the department course for this patient. I have also personally directed, reviewed, and agree with the discharge instructions and disposition. Disposition/Present on Arrival - Present on Arrival Any Indicators Present on Arrival: No History of DVT/PE: No History of Uncontrolled Diabetes: No Urinary Catheter: No History of Decub. Ulcer: No History Surgical Site Infection Following: None - Disposition Have Diagnosis and Disposition been Completed?: Yes Diagnosis: COPD with acute exacerbation, Acute bronchitis, CO2 narcosis, Altered mental status, unspecified Disposition: HOSPITALIZED Disposition Time: 14:00 Patient Plan: Admission, Telemetry Condition: FAIR
[2017-11-01] MEDS: Albuterol-Ipratrop 3 mg / 0.5 (3 ml) UD IH SCH ×3 (08:35→09:00)
[2017-11-01 09:06] LABS: VENOUS BLOOD GAS PO2 40 mm/Hg (30-55); VENOUS BLOOD PH 7.31 (7.32-7.43)
[2017-11-01 09:12] LABS: BASO # 0.06 K/mm3 (0.0-2.0); BASO % 0.5 % (0.0-3.0); EOS # 0.1 (0.0-0.7); EOS % 0.8 % (1.5-5.0); GRAN # 10.03 (1.4-6.5); GRAN % 89.1 % (50.0-68.0); HEMOGLOBIN 14.3 g/dL (12.0-16.0); LYMPH # 0.6 (1.2-3.4); LYMPH % 5.1 % (22.0-35.0); MEAN CELL VOLUME 85.4 fl (80.0-105.0); MEAN CORPUSCULAR HEMOGLOBIN 27.4 pg (25.0-35.0); MEAN CORPUSCULAR HGB CONC 32.1 g/dl (31.0-37.0); MEAN PLATELET VOLUME 9.9 fl (7.0-11.0); MONO # 0.5 (0.1-0.6); MONO % 4.5 % (1.0-6.0); RBC 5.22 10^6/uL (3.5-6.1); RED CELL DISTRIBUTION WIDTH 18.3 % (11.5-14.5); WHITE BLOOD COUNT 11.3 10^3/ul (4.5-11.0)
[2017-11-01 09:17] LABS: INR 1.07 (0.93-1.08); PARTIAL THROMBOPLASTIN TIME 35.8 Seconds (25.1-36.5); PROTHROMBIN TIME 12.3 SECONDS (9.4-12.5)
[2017-11-01 09:30] LABS: B-TYPE NATRIURETIC PEPTIDE 147 pg/mL (0-450); TROPONIN I < 0.01 ng/mL
[2017-11-01 09:57] LABS: ALB/GLOB RATIO 1.1 (1.1-1.8); ALBUMIN 4.4 g/dL (3.0-4.8); ALT/SGPT 45 U/L (7-56); AST/SGOT 66 U/L (14-36); BLOOD UREA NITROGEN 12 mg/dL (7-21); GFR AFRICAN-AMERICAN > 60; GFR NON-AFRICAN AMERICAN 60; LIPASE 19 U/L (23-300)
[2017-11-01 10:14] LABS: URINE BILIRUBIN NEGATIVE (NEGATIVE); URINE BLOOD TRACE-INTACT (NEGATIVE); URINE GLUCOSE (UA) NEGATIVE (NEGATIVE); URINE LEUKOCYTE ESTERASE MODERATE Leu/uL (NEGATIVE); URINE PROTEIN NEGATIVE mg/dL (<30 mg/dL); URINE UROBILINOGEN 0.2 E.U./dL (<1 E.U./dL)
[2017-11-01 10:20] LABS: URINE APPEARANCE CLEAR (CLEAR); URINE COLOR YELLOW (YELLOW)
[2017-11-01 10:23] LABS: ARTERIAL BLOOD GAS HEMOGLOBIN 13.5 g/dL (11.7-17.4); ARTERIAL BLOOD GAS O2 CAPACITY 16.9 mL/dl (16-24); ARTERIAL BLOOD GAS O2 CONTENT 14.3 ML/dl (15-23); ARTERIAL BLOOD GAS O2 SAT 84.4 % (95-98); ARTERIAL BLOOD GAS PCO2 78 mm/Hg (35-45); ARTERIAL BLOOD GAS PH 7.35 (7.35-7.45); ARTERIAL BLOOD GAS TCO2 45.5 mmol.L (22-28)
[2017-11-01 10:38] LABS: URINE AMORPHOUS SEDIMENT FEW; URINE BACTERIA MANY (NEG); URINE WBC 20 - 25 /hpf (0-6)
--- NOTE | 2017-11-01 10:55 | RAD ---
HISTORY: COMPARISON: 10/29/2017. TECHNIQUE: Chest PA and lateral FINDINGS: LINES AND TUBES: None. LUNG AND PLEURA: The lungs are well inflated without focal consolidation. There is moderate pulmonary venous congestion. HEART AND MEDIASTINUM: The heart is not enlarged. The hilar and mediastinal contours are within normal limits. SKELETAL STRUCTURES: The bony structures are within normal limits for the patient's age. VISUALIZED UPPER ABDOMEN: Normal. OTHER FINDINGS: None. IMPRESSION: Moderate pulmonary venous congestion. No active pulmonary disease.
[2017-11-01 10:58] LABS: ARTERIAL BLOOD GAS HCO3 43.1 mmol/L (21-28)
[2017-11-01] MEDS ORDERED: levoFLOXacin 750 mg in D5W 150 ML BAG IVPB ONE (11:16)
--- NOTE | 2017-11-01 12:57 | CP.PCM.CON ---
History of Present Illness - History of Present Illness History of Present Illness: Critical Care Consult Note HPI Patient is 47 yo female with PMHx of Obesity, JEAN-CLAUDE,goiter, non compliant with CPAP, COPD, smoker, HTN, presents with AMS. As per the the patient has had on and off visual hallucinations for 4 days. Denies fever, chills, CP, SOB, palpitaitons, REDDY, dizziness. Upon further interview, patient is AAOx3, NAD awake , alert, speaking full sentences, providing full history, appropriate. Pt endorses chronic productive cough. No other constitutional symptoms. PMHx As above PSHx as above Meds as per EMR FHx NC ROS as above Social smoker, denies etoh, drug use Review of Systems - Review of Systems Review of Systems: as per HPI Past Patient History - Infectious Disease Hx of Infectious Diseases: None - Tetanus Immunizations Tetanus Immunization: Unknown - Past Social History Smoking Status: Heavy Smoker > 10 Cigarettes Daily - CARDIAC Hx Cardiac Disorders: Yes Hx Peripheral Edema: Yes (ble +1) - PULMONARY Hx Bronchitis: Yes Hx Chronic Obstructive Pulmonary Disease (COPD): Yes Hx Pneumonia: Yes - NEUROLOGICAL Hx Neurological Disorder: No - HEENT Hx HEENT Problems: No - RENAL Hx Chronic Kidney Disease: No - ENDOCRINE/METABOLIC Hx Endocrine Disorders: Yes Hx Hypothyroidism: Yes Other/Comment: hashimotos, goiter - HEMATOLOGICAL/ONCOLOGICAL Hx Anemia: Yes - INTEGUMENTARY Hx Dermatological Problems: Yes Other/Comment: treated for scabies 10/07/17 - MUSCULOSKELETAL/RHEUMATOLOGICAL Hx Musculoskeletal Disorders: Yes Hx Falls: No Other/Comment: "pinched nerve" - GENITOURINARY/GYNECOLOGICAL Hx Genitourinary Disorders: Yes (UTI) - PSYCHIATRIC Hx Substance Use: No - SURGICAL HISTORY Hx Surgeries: No - ANESTHESIA Hx Anesthesia: No Meds Allergies/Adverse Reactions: Allergies Allergy/AdvReac Type Severity Reaction Status Date / Time Penicillins Allergy SHORTNESS Verified 11/01/17 08:00 OF BREATH - Medications Medications: Current Medications Sodium Chloride (Sodium Chloride 0.9%) 1,000 mls @ 100 mls/hr IV .Q10H COUNTS INCLUDE 234 BEDS AT THE [facility] Last Admin: 11/01/17 08:58 Dose: 100 mls/hr Physical Exam - Constitutional Appears: Non-toxic, No Acute Distress, Unkempt - Head Exam Head Exam: NORMAL INSPECTION - Eye Exam Eye Exam: Normal appearance - ENT Exam ENT Exam: Mucous Membranes Dry - Neck Exam Neck exam: Positive for: Thyromegaly - Respiratory Exam Respiratory Exam: Clear to Auscultation Bilateral, NORMAL BREATHING PATTERN - Cardiovascular Exam Cardiovascular Exam: REGULAR RHYTHM, +S1, +S2 - GI/Abdominal Exam GI & Abdominal Exam: Normal Bowel Sounds, Soft - Neurological Exam Neurological exam: Alert, Oriented x3 Results - Vital Signs Recent Vital Signs: Last Vital Signs Temp 98.9 F 11/01/17 12:22 Pulse 89 11/01/17 12:22 Resp 20 11/01/17 12:22 BP 100/76 11/01/17 12:22 Pulse Ox 95 11/01/17 12:22 - Labs Result Diagrams: 11/01/17 08:54 11/01/17 08:54 - Imaging and Cardiology Chest x-ray Status: Image reviewed by me, Report reviewed by me Assessment & Plan - Assessment and Plan (Free Text) Assessment: 47yo female a/w AMS AMS COPD/Emphysema JEAN-CLAUDE - currently afebrile, HD stable, comfortable on 2LNC, sat 95%, AAOx3, NAD, providing full history - Labs noted, ABG with chronic resp acidosis, compensated, hypoxemia, which is resolved with supp o2, saturation now 95% - would give Solumedrol IV, Abx - BIPAP only as needed, and at night - Pulmonary consult - Psych evaluation - CT head - Monitor on telemetry, stable
[2017-11-01 13:09] VITALS: RESP 18
[2017-11-01] MEDS ORDERED: Permethrin 5% Cream(60 gm) TOP ONE (14:34)
[2017-11-01] MEDS ORDERED: Albuterol-Ipratrop 3 mg / 0.5 (3 ml) UD IH PRN (14:48)
[2017-11-01] MEDS ORDERED: Albuterol 0.083% Inhal Sol (2.5 mg/3 mL) UD IH PRN (14:49)
[2017-11-01] MEDS ORDERED: MethylPREDNISolone 40 mg Vial IVP SCH (15:00)
[2017-11-01] MEDS ORDERED: Home Med 1 UNIT IH SCH (15:15)
[2017-11-01] MEDS ORDERED: Albuterol-Ipratrop 3 mg / 0.5 (3 ml) UD IH SCH ×2 (16:00→20:00)
[2017-11-01 18:49] VITALS: BP 130/70; PULSE 60; TEMP 98
--- NOTE | 2017-11-01 19:28 | CARD ---
APPROVED REPORT EKG Measurement Heart [id number] <Conclusion> Normal sinus rhythm with sinus arrhythmia Low voltage QRS Cannot rule out Anterior infarct, age undetermined Abnormal ECG
--- NOTE | 2017-11-01 20:28 | PCM.RRT ---
ELECTRONIC PLOTTING SYSTEM OPERATOR Nurse Assessment - Situation Date: 11/01/17 Time ELECTRONIC PLOTTING SYSTEM OPERATOR was called: 19:07 (19:07 ELECTRONIC PLOTTING SYSTEM OPERATOR called for asystole, 19:10 Code blue) ELECTRONIC PLOTTING SYSTEM OPERATOR Responder Arrival Time: 19:08 ELECTRONIC PLOTTING SYSTEM OPERATOR Location:: [address] [place] [address] Room Number: 274-1 ELECTRONIC PLOTTING SYSTEM OPERATOR Called By: RN - Respiratory Oxygen Flow Rate: 2 (Increased during the code) Was the Patient Ventilated with Bag/Mask 100% O2?: Yes Secretions Suctioned?: Yes Was the Patient Intubated?: Yes Was the Patient Placed on a Ventilator?: No (Bag Valve Mask) - Time ELECTRONIC PLOTTING SYSTEM OPERATOR Ended Time ELECTRONIC PLOTTING SYSTEM OPERATOR Ended: 19:55 I.Reason for ELECTRONIC PLOTTING SYSTEM OPERATOR - A) Acute Change in Patient: Subjective: RN noticed that patient was asystole on monitor. Pt was unresponsive, CPR and ventilation with bag valve mask already started when I arrived. ACLS protocol was followed. Pulse check q2 min and epi given q3-5 mins. Pt was pulseless and in asystole. Pt was intubated. 11 rounds of epi was given. After 45 minutes into the code, pt remains pulseless and in asystole. All agreed to end the code. The code ended at 19:55. Pt was pronounced on 19:57.
--- NOTE | 2017-11-01 20:56 | CP.PCM.PRO ---
Pronouncement of Note - Clinical Findings Physical Exam: No Response Verbal/Painful Stimuli, Absent Peripheral Pulses{ Carotid & Femoral}, Absent Heart & Breath Sounds, No Pupillary Light Reflex, No Corneal Reflex, Pupils Fixed & Dilated, Absence of Vital Signs - Pronouncement Time Time of Pronouncement of : 19:57 - Notifications Pronouncement Notifications: Family Notified, Atending Notified Pharmacy Intake Technician Notified: Yes - Autopsy Autopsy Requested: No - [place] [id number]
[2017-11-01 21:56] VITALS: O2SAT 94
--- NOTE | 2017-11-02 05:03 | HP ---
HISTORY OF PRESENT ILLNESS: The patient is a 47-year-old female who was seen at 6:00 p.m. [facility] in room 274, bed 1. She was initially brought to the emergency room with a history of 4 days of hallucination and shortness of breath according to the . The patient appears to have been hallucinating when she was desaturating. When seen, she was on a mask. She recognized me and we spoke and she was at that time lucid. PAST MEDICAL HISTORY: Remarkable for COPD, pneumonia and sinusitis. HOME MEDICATION: Included prednisone, levothyroxine, levofloxacin, Lasix, as well as albuterol via nebulizer and inhaler. SOCIAL HISTORY: Patient smokes more than 10 cigarettes per day, social alcohol use and does not use substances. FAMILY HISTORY: Noncontributory. PAST SURGICAL HISTORY: Noncontributory. ALLERGIES: PENICILLIN. PHYSICAL EXAMINATION: VITAL SIGNS: Temperature of 98 degrees, pulse rate of 60, blood pressure of 130/70, respiratory rate of 18 with an O2 saturation of 99%. HEENT: PERRLA, EOMI. NECK: Supple with a full range of motion. No bruits were present. LUNGS: Showed diminished breath sounds with scattered wheezes. No rhonchi are apparent. HEART: With a regular rate and rhythm. No murmurs, rubs, or gallops. ABDOMEN: Soft. It is nontender. NEUROLOGIC: There are no focal motor deficits. LABORATORY DATA: WBC of 11.3, 89.1% granulocytes. Chemistry is normal with the exception of chloride of 92, carbon dioxide of 42, random non-fasting glucose of 142. AST of 66, ALT of 45 with a lipase of 19. ADMITTING DIAGNOSES: At this time are, 1. Acute exacerbation of chronic obstructive pulmonary disease. 2. Hypoxia, corrected with a mask. PLAN: It was thought initially that the patient will go to ICU, but she was seen by the epic cadence specialists and she was subsequently admitted to telemetry. We will place the patient on bronchodilators, IV Solu-Medrol. Dr. Royal Ramos was consulted and placed the patient on BiPAP. Reed Steinberg MD
[2017-11-02] MEDS ORDERED: Home Med 1 UNIT IH SCH (10:00)
--- NOTE | 2017-11-02 16:48 | DS ---
ADMITTING DIAGNOSIS: COPD exacerbation and AMS. DISCHARGE DIAGNOSES: COPD exacerbation, AMS, acute hypoxic respiratory failure and cardiopulmonary arrest. SECONDARY DIAGNOSES: Hypertension, JEAN-CLAUDE, hypothyroidism and morbid obesity. CONSULTATIONS: Dr. Ramos (Pulmonary & Critical Care Medicine), Dr. Thompson (ID) and Dr. Peck (Pulmonary & Critical Care Medicine). IMAGING STUDIES: Chest x-ray demonstrated moderate pulmonary venous congestion but otherwise no active pulmonary disease. PROCEDURES: None. HISTORY OF PRESENT ILLNESS: The patient is a 47 years old woman with a past medical history of morbid obesity, JEAN-CLAUDE and COPD with a history of noncompliance with her medications and CPAP, who presented to the ED for evaluation of a 4 day history of progressively worsening hallucinations and dyspnea. The patient initially presented to the ED on 10/29/2017 for complaint of increasing dyspnea, cough and auditory and visual hallucinations. Physical examination at that time was reportedly unremarkable, as were laboratory studies, chest x-ray and CT of the head. The patient was advised to complete her Levaquin course as prescribed and was additionally prescribed a Medrol Dosepak with followup arranged with her PMD following day. The patient was evaluated by her PMD on 10/30/2017 for the aforementioned symptoms and was accompanied by her . She was reportedly having increasing auditory and visual hallucinations but the patient was aware that she was having these hallucinations. She reported at that time that she had not yet started her medications as prescribed and also reported noncompliance with her CPAP machine at night. Physical examination at that time disclosed her to be afebrile, hemodynamically stable and neurologically intact. She was found to have persistent wheeze with rhonchi on lung auscultation. She was advised that her AMS may be secondary to hypercarbia vs an underlying infection and was advised to take her medications as directed and further advised to remain compliant with her CPAP. She was also advised that if her symptoms do not improve in the following 24 hours, to present to the ED. The patient then reportedly went home and took her medications as directed but was noted to remain confused and with persistent hallucinations. On 11/01/2017, she was brought to the ED by her . Upon arrival to the ED, she was found to be afebrile and hemodynamically stable however hypoxic on room air with a pulse ox of 89%. Laboratory studies that were drawn including an ABG demonstrated a marked hypoxia with a pO2 of 40 and hypercapnia with a pCO2 of 78. She was placed on a nonrebreather mask with subsequent improvement in her oxygenation. She was also evaluated by Dr. Peck of Pulmonary and Critical Care Medicine and at that time was not deemed suitable for admission to the ICU and as such was admitted to the telemetry [facility] for continued management of COPD exacerbation. HOSPITAL COURSE: Upon admission to the telemetry [facility] the patient was maintained on supplemental oxygen and bronchodilators. She was also placed on a BiPAP however the patient was noncompliant with her BiPAP despite multiple requests from the nursing staff , her family members and the medical residents. Several hours later the patient was noted to clinically deteriorate and again become hypoxic. She was placed on a Ventimask with improvement in her oxygenation to a pulse ox of 92%. She was advised that in an attempt to prevent intubation, the BiPAP would be recommended however she continued to decline BiPAP despite expressing an understanding of the risks. She remained on nasal cannula and Ventimask and maintained a pulse oximetry of approximately 95%. At 7:09 p.m., a rapid response was called when telemetry monitoring revealed asystole. ACLS protocol was promptly initiated at 7:10 and despite valiant efforts and coding the patient for 45 minutes, there was no return of spontaneous circulation and the code was ended at 7:55 p.m. The patient was pronounced at 7:57 p.m. DISPOSITION: The patient . Baudilio Steinberg MD [facility]
--- NOTE | 2017-11-02 20:00 | CP.PCM.PN ---
Subjective - Date & Time of Evaluation Date of Evaluation: 11/01/17 Time of Evaluation: 19:30 - Subjective Subjective: It was requested to insert ETT. Position was confirmed with Capnography detector,direct visualization and auscultation. Objective - Vital Signs/Intake and Output Vital Signs (last 24 hours): Temp Pulse Resp BP Pulse Ox 98 F 60 18 130/70 94 L 11/01/17 18:00 11/01/17 18:00 11/01/17 18:00 11/01/17 18:00 11/01/17 13:22 - Labs Labs: PT 12.3 SECONDS (9.4-12.5) 11/01/17 08:54 INR 1.07 (0.93-1.08) 11/01/17 08:54 APTT 35.8 Seconds (25.1-36.5) 11/01/17 08:54
== END 2017-11-01 19:57 | DRG 190 ==
LOC: ED 07:36 → ERH 11:17 → 2RSO 13:18
PROVIDERS: ADMIT Student in an Organized Health Care Education/Training Program; ATTEND Student in an Organized Health Care Education/Training Program
PROC: 5A09357 Assistance with Respiratory Ventilation, Less than 24 Consecutive Hours, Continuous Positive Airway Pressure (ICD-10-PCS; principal; 2017-11-01)
PROC: 3E0F7GC Introduction of Other Therapeutic Substance into Respiratory Tract, Via Natural or Artificial Opening (ICD-10-PCS; 2017-11-01)
PROC: 0BH17EZ Insertion of Endotracheal Airway into Trachea, Via Natural or Artificial Opening (ICD-10-PCS; 2017-11-01)
DX: J44.1 Chronic obstructive pulmonary disease with (acute) exacerbation (principal); J96.01 Acute respiratory failure with hypoxia; E87.2 Acidosis; R44.0 Auditory hallucinations; R44.1 Visual hallucinations; R41.82 Altered mental status, unspecified; I10 Essential (primary) hypertension; G47.33 Obstructive sleep apnea (adult) (pediatric); F17.210 Nicotine dependence, cigarettes, uncomplicated; E06.3 Autoimmune thyroiditis; Z91.14 Patient's other noncompliance with medication regimen; Z91.19 Patient's noncompliance with other medical treatment and regimen; E66.01 Morbid (severe) obesity due to excess calories; Z68.34 Body mass index [BMI] 34.0-34.9, adult; Z87.01 Personal history of pneumonia (recurrent)